=== PATIENT | male | born 1965 | race Two or more races ===

== ENCOUNTER 2018-02-17 21:35 | Emergency (ER) | payer OTHER ==
[~2018-02-17] VITALS: Ht 162.6 cm; Wt 74.4 kg
[2018-02-17] MEDS ORDERED: NKM (22:03)
[2018-02-17 22:19] VITALS: BP 142/98
[2018-02-17] MEDS ORDERED: Lidocaine 1% MPF 10mg/ml 5ml INJ ONE (22:30)
[2018-02-17] MEDS ORDERED: Bacitracin Oint UD TOPIC ONE ×2 (22:30→23:18)
[2018-02-17 23:13] VITALS: BP 138/78
--- NOTE | 2018-02-18 00:05 | Emergency Room Report ---
History of Present Illness General Chief Complaint: Laceration Source: Patient Present Illness HPI Patient with cut to R little finger while slicing lettuce in a cheese grater at 5 pm Piece cut off. Bleeding poorly controlled with coffee and tight dressing - however, no active bleeding now with dressing on. Pain rated 2/10, sharp aching and not radiating. Denies medical problems. Last tetanus recent. R handed. 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 Reviewed Nursing Documentation: PMH: Agreed; PSxH: Agreed Nursing Documentation-PMH Past Medical History: No Stated History Review of Systems Constitutional: Denies: fever Musculoskeletal: Reports: see HPI Skin: Reports: see HPI Neurological: Denies: numbness Hematologic/Lymphatic: Reports: see HPI Physical Exam Vital Signs Date Time Temp Pulse Resp B/P (MAP) Pulse Ox O2 Delivery O2 Flow Rate FiO2 02/17/18 21:59 98.2 75 16 157/99 96 Room Air 98.2 Sp02 EP Interpretation: reviewed, normal General Appearance: well appearing, no apparent distress, alert, GCS 15 Head: normocephalic, atraumatic Eyes: bilateral eye normal inspection, bilateral eye PERRL ENT: hearing grossly normal, normal voice Neck: full range of motion, supple Respiratory: no respiratory distress, speaking full sentences Cardiovascular #2: 2+ radial (R) Gastrointestinal: normal inspection Musculoskeletal: normal range of motion Neurologic: alert, motor strength/tone normal, sensory intact, normal gait Psychiatric: mood/affect normal Skin: other - avulsed lateral R little finger Procedures Laceration/Wound Repair Laceration/Wound Repair : Consent: Verbal Wound Location: upper extremity Wound's Depth, Shape: other - avulsed area with SC adepose tissue Wound Explored: contaminated - coffe grounds Irrigated w/ Saline (ccs): 20 Betadine Prep?: Yes Anesthesia: 1% Lidocaine - digital block Volume Anesthetic (ccs): 2 Wound Debrided: none Wound Repaired With: sutures Suture Size/Type: 5:0 Sterile Dressing Applied?: Yes Splint Applied?: No Sling Applied?: Yes Progress Avulsed area of little finger cleaned after digital block and tourniquet. Not able to approximate completely due to avulsed tissue, however approximation fairly good. Copious irrigation. Tolerated well. Medical Decision Making Diagnostic Impression: Primary Impression: Right finger avulsion Additional Impression: Laceration of right little finger Qualified Codes: S61.216A - Laceration without foreign body of right little finger without damage to nail, initial encounter ER Course Avulsion/laceration R little finger. Might need hemostasis and dressing, but will evaluate for possible primary closure. See procedure note. There was enough tissue for near complete primary closure. Tolerated well. Patient stable for outpatient observation and treatment. Last Vital Signs Date Time Temp Pulse Resp B/P (MAP) Pulse Ox O2 Delivery O2 Flow Rate FiO2 02/18/18 00:19 98.4 80 18 138/78 98 Room Air 98.4 Status: improved Disposition: HOME, SELF-CARE Condition: Improved Scripts Bacitracin (Bacitracin) 28.4 Gm Oint...g. 1 APPLIC TOPIC BID, #20 GM Prov: Priyank Barrientos M.D. 02/18/18 Ibuprofen* (MOTRIN*) 600 Mg Tablet 600 MG ORAL Q6H PRN for For Pain, #20 TAB Prov: Priyank Barrientos M.D. 02/18/18 Tramadol Hcl* (ULTRAM*) 50 Mg Tablet 50 MG ORAL Q6H PRN for For Pain, #14 TAB 0 Refills Prov: Priyank Barrientos M.D. 02/18/18 Referrals: NON PHYSICIAN (PCP) Priyank Barrientos M.D. Feb 18, 2018 00:05
[2018-02-18] MEDS ORDERED: IBUPROFEN600 MG ORAL (00:13)
[2018-02-18] MEDS ORDERED: BACITRACIN15 GM TOPIC (00:13)
[2018-02-18] MEDS ORDERED: TRAMADOL HCL50 MG ORAL (00:13)
[2018-02-18 00:19] VITALS: BP 138/78
== END 2018-02-18 00:19 | disposition home or self-care (01) ==
LOC: EMR 22:16
DX: S61.216A Laceration without foreign body of right little finger without damage to nail, initial encounter (principal); W26.8XXA Contact with other sharp object(s), not elsewhere classified, initial encounter; Y93.89 Activity, other specified; Y92.89 Other specified places as the place of occurrence of the external cause; Y99.2 Volunteer activity
CPT/HCPCS: 99283